=== PATIENT | female | born 1980 | race Caucasian/White ===

== ENCOUNTER → 2017-03-05 | Outpatient (CLI) | payer BC ==
[2005-10-14 23:45] VITALS: PULSE 70; TEMP 98.4
== END ==
LOC: MC.RAD 07:20
DX: Z12.31 Encounter for screening mammogram for malignant neoplasm of breast (principal); N64.89 Other specified disorders of breast

== ENCOUNTER → 2018-04-15 | Outpatient (CLI) | payer BC ==
[2005-10-14 23:45] VITALS: PULSE 70; TEMP 98.4
== END ==
LOC: MC.RAD 06:59
DX: Z12.31 Encounter for screening mammogram for malignant neoplasm of breast (principal)

== ENCOUNTER → 2019-04-21 | Outpatient (CLI) | payer BC ==
[2005-10-14 23:45] VITALS: PULSE 70; TEMP 98.4
== END ==
LOC: MC.RAD 07:30
DX: Z12.31 Encounter for screening mammogram for malignant neoplasm of breast (principal)

== ENCOUNTER → 2020-04-22 | Outpatient (CLI) | payer BC ==
[2005-10-14 23:45] VITALS: PULSE 70; TEMP 98.4
== END ==
LOC: MC.RAD 06:53
DX: Z12.31 Encounter for screening mammogram for malignant neoplasm of breast (principal)

== ENCOUNTER → 2021-04-25 | Outpatient (CLI) | payer BC ==
[2005-10-14 23:45] VITALS: PULSE 70; TEMP 98.4
== END ==
LOC: MC.RAD 07:45
DX: Z12.31 Encounter for screening mammogram for malignant neoplasm of breast (principal)

== ENCOUNTER → 2022-04-27 | Outpatient (CLI) | payer BC ==
[2005-10-14 23:45] VITALS: PULSE 70; TEMP 98.4
== END ==
LOC: MC.RAD 07:00
DX: Z12.31 Encounter for screening mammogram for malignant neoplasm of breast (principal)

== ENCOUNTER → 2024-05-12 | Outpatient (CLI) | payer BC ==
[2005-10-14 23:45] VITALS: PULSE 70; TEMP 98.4
== END ==
LOC: MC.RAD 09:03
DX: Z12.31 Encounter for screening mammogram for malignant neoplasm of breast (principal)